=== PATIENT | male | born 1980 | race Caucasian/White ===

== ENCOUNTER 2016-11-12 08:36 | Day surgery (SDC) | payer OTHER ==
[~2016-11-12] VITALS: Ht 180.3 cm; Wt 88.5 kg
[2016-11-12] MEDS ORDERED: LR 1,000 ML IV ONE (08:45)
[2016-11-12] MEDS ORDERED: MIDAZOLAM INJ 2 MG/2 ML VIAL (J2250) As Ordered ONE (08:52)
[2016-11-12] MEDS ORDERED: fentaNYL 100 MCG/2 ML INJECTION (J3010) As Ordered ONE ×2 (08:52→10:02)
[2016-11-12] MEDS ORDERED: BUPIVACAINE/EPIN 0.25% 30 ML VIAL As Ordered ONE (09:04)
[2016-11-12] MEDS ORDERED: ONDANSETRON 4MG/2ML VIAL (J2405) As Ordered ONE (10:03)
[2016-11-12] MEDS ORDERED: dexameTHASONE 4 MG/ML 1ML VIAL (J1100) As Ordered ONE (10:03)
[2016-11-12] MEDS ORDERED: PROPOFOL 200 MG/20 ML VIAL As Ordered ONE (10:06)
[2016-11-12] MEDS ORDERED: KETOROLAC 60 MG/2 ML VIAL (J1885) As Ordered ONE (10:07)
[2016-11-12] MEDS ORDERED: LIDOCAINE 2% INJ 100 MG/5 ML SDV (FOR ANES.) As Ordered ONE (10:07)
[2016-11-12] MEDS ORDERED: ROCURONIUM BROMIDE 50 MG/5 ML VIAL/SYRINGE As Ordered ONE (10:07)
[2016-11-12] MEDS ORDERED: NEOSTIGMINE 1MG/ML 5 ML SYRINGE (J2710) As Ordered ONE (10:24)
[2016-11-12] MEDS ORDERED: GLYCOPYRROLATE INJ 0.2 MG/ML 2 ML VIAL As Ordered ONE (10:24)
[2016-11-12] MEDS ORDERED: HYDROmorphone HCL 2 MG/ML 1ML VIAL (J1170) As Ordered ONE (10:39)
[2016-11-12] MEDS ORDERED: LR 1,000 ML IV SCH (11:00)
[2016-11-12] MEDS ORDERED: ONDANSETRON 4MG/2ML VIAL (J2405) IV PRN (11:00)
[2016-11-12] MEDS ORDERED: NORCO, ANEXSIA 5/325MG TABLET (HYDROcodone/ACETAMINOPHEN) PO PRN (11:00)
[2016-11-12] MEDS: fentaNYL 100 MCG/2 ML INJECTION (J3010) IV PRN ×3 (11:05→11:20)
[2016-11-12 13:00] VITALS: BP 110/60
--- NOTE | 2016-11-12 16:38 | RO ---
DATE OF PROCEDURE: 11/12/2016 PREOPERATIVE DIAGNOSIS: Umbilical hernia. POSTOPERATIVE DIAGNOSIS: Umbilical hernia. PROCEDURE: Laparoscopic umbilical hernia repair with mesh. SURGEON: Dr. Dowell HOSPICE CASE MANAGER: None. ANESTHESIA: General ESTIMATED BLOOD LOSS: 5 COMPLICATIONS: None. INDICATIONS FOR PROCEDURE: The patient 34-year-old male presents with umbilical hernia happened after moving. He has of a lump in his belly button that is extremely tender to palpation. Recommendation to proceed labs, possible open repair. Risks and was procedure not limited but including bleeding, infection, hernia formation, hernia recurrence, damage surrounding structures, need for further surgery were discussed in detail with the patient formed was obtained procedure was planned. PROCEDURE: The patient brought back to operating room three after sufficient sedation. The abdomen was sterilely prepped and draped. Next time-out was done to confirm proper patient brought procedure. Following that a 5 mm incision made in left upper quadrant. Veress needle was inserted and the abdomen was insufflated for 2 mmHg. Next a 5 mm OptiVu port was used to gain access the abdomen. The abdomen was and entered port is left lower quadrant. Enseal was used to enter the preperitoneal space and dissect out the preperitoneal fat that had herniated through along with the hernia. One solid hernia sac and contents were carefully dissected free with the Enseal. 9 cm round Parietex composite mesh was taken. #0 Vicryl sutures were placed in all four corners. Mesh was placed inside the abdomen. The Devaughn-López needle was then used to pull the sutures out through the abdominal wall through small stab incision. These sutures were all tied down in place. Secure strap tackers was then used to take place two rows of tacks around the perimeter of the mesh. Once that was completed the abdomen was desufflated. Skin incisions were closed #4-0 Vicryl subcuticular sutures. The abdomen was cleaned and dried. Steri-Strips, 4x4, and tape were applied thus ending procedure.
== END 2016-11-12 13:21 | disposition home or self-care (01) ==
LOC: M SDC 08:36
PROVIDERS: ATTEND Surgery
DX: K42.9 Umbilical hernia without obstruction or gangrene (principal); J30.2 Other seasonal allergic rhinitis; Z72.0 Tobacco use
CPT/HCPCS: 49652; 88302; C1781; J0690; J1100; J1170; J1885; J2250; J2405; J2710; J3010

== ENCOUNTER 2017-10-31 11:42 | Emergency (ER) | payer OTHER ==
[2017-10-31] MEDS: NORCO, ANEXSIA 5/325MG TABLET (HYDROcodone/ACETAMINOPHEN) PO (13:51)
== END 2017-10-31 13:54 | disposition home or self-care (01) ==
LOC: M ED 11:42
DX: S93.402A Sprain of unspecified ligament of left ankle, initial encounter (principal); X50.9XXA Other and unspecified overexertion or strenuous movements or postures, initial encounter; Y92.59 Other trade areas as the place of occurrence of the external cause; Y99.0 Civilian activity done for income or pay
CPT/HCPCS: 73610